=== PATIENT | female | born 1990 | race Caucasian/White ===

== ENCOUNTER 2018-11-27 00:46 | Inpatient (IN) | payer OTHER ==
[2018-11-27] MEDS ORDERED: Lactated Ringers 1,000 ML IV ONE (03:50)
[2018-11-27] MEDS ORDERED: ePHEDrine 50 MG/ML SDV ONE ×2 (05:24→13:19)
[2018-11-27] MEDS ORDERED: Sodium Chloride 0.9% 10 ML Syringe FLUSH PRN ×2 (05:27→06:05)
[2018-11-27] MEDS ORDERED: diphenhydrAMINE 50 MG/ML SDV IVPUSH PRN ×2 (05:27)
[2018-11-27] MEDS ORDERED: Naloxone 0.4 MG/ML SDV IVPUSH PRN (05:27)
[2018-11-27] MEDS ORDERED: Ropivacaine 200 MG in Premix Bag 1 BAG EPIDUR SCH (05:30)
[2018-11-27] MEDS ORDERED: Ropivacaine 100 ML ONE (05:33)
[2018-11-27] MEDS: ePHEDrine 50 MG/ML SDV IVPUSH PRN ×2 (05:57→10:00)
[2018-11-27] MEDS ORDERED: Acetaminophen 325 MG Tab PO PRN (06:05)
--- NOTE | 2018-11-27 06:31 | PCM.LDHP ---
L&D History of Present Illness - General Date of Service: 11/27/18 (PROM) Admit Problem/Dx: Patient Status Order with Admit Dx/Problem 11/27/18 06:07 Patient Status [ADT] Routine Admission Diagnosis/Problem Admission Diagnosis/Problem Source of Information: Patient History Limitations: Reports: No Limitations - History of Present Illness Introduction:: This 28 year old presented for premature rupture of membranes at home last night at 1213. Fluid was clear.Contractions are 3-5 minutes apart and much stronger cervix hasn't changed from clinic last week. 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: : 3 Para: 0 LMP (Approximate): (YFN 11/29/18) Other OB/BYN History: Psychiatric History: Reports: ADHD Immunologic History: Reports: None - Past Surgical History Oncologic Surgical History: Reports: None Social & Family History - Family History Family Medical History: Noncontributory - Tobacco Use Smoking Status *Q: Never Smoker Second Hand Smoke Exposure: No - Caffeine Use Caffeine Use: Reports: None - Recreational Drug Use Recreational Drug Use: No H&P Review of Systems - Review of Systems: Review Of Systems: See Below General: Reports: No Symptoms HEENT: Reports: No Symptoms Pulmonary: Reports: No Symptoms Cardiovascular: Reports: No Symptoms Gastrointestinal: Reports: No Symptoms Genitourinary: Reports: No Symptoms Musculoskeletal: Reports: No Symptoms Skin: Reports: No Symptoms Psychiatric: Reports: No Symptoms Neurological: Reports: No Symptoms Hematologic/Lymphatic: Reports: No Symptoms Immunologic: Reports: No Symptoms L&D Exam - Exam Exam: See Below - Vital Signs Vital Signs: Last Vital Signs Temp 95.5 F 11/27/18 05:38 Pulse 92 11/27/18 06:05 Resp 16 11/27/18 06:05 BP 121/52 L 11/27/18 06:05 Pulse Ox 98 11/27/18 06:05 Weight: 227 lb - OB Specific Contraction Duration (sec): 20-30 Contraction Frequency (min): 5-12 Contraction Intensity: Irritability Movement: Active Heart Tones: Present Heart Rate (FHR) Variability: Moderate (6-25 bmp) Presentation: Vertex Estimated Weight: 8 pounds - Estrella Score Estrella Score Cervix Position: Midposition Estrella Score Consistency: Soft Estrella Score Effacement: 51-70% Estrella Score Dilation: 1-2 cm Estrella Score Infant's Station: -1 ,0 Estrella Score Total: 8 - Exam General: Alert, Oriented HEENT: PERRLA, Conjunctiva Clear, EACs Clear, EOMI, Hearing Intact, Mucosa Moist & [place], Nares Patent, Normal Nasal Septum, Posterior Pharynx Clear, Pupils Equal, Pupils Reactive, TMs Clear Neck: Supple, Trachea Midline Lungs: Clear to Auscultation, Normal Respiratory Effort Cardiovascular: Regular Rate, Regular Rhythm GI/Abdominal Exam: Normal Bowel Sounds, Soft, Non-Tender, No Distention, No Abnormal Bruit, No Mass Rectal Exam: Normal Exam Genitourinary: Normal external exam, Normal bimanual exam, Normal speculum exam , Enlarged uterus Back Exam: Normal Inspection, Full Range of Motion Extremities: Normal Inspection, No Pedal Edema, Normal Capillary Refill Skin: Warm, Dry, Intact Neurological: Cranial Nerves Intact, Reflexes Equal Bilateral Psychiatric: Alert, Normal Affect, Normal Mood - Patient Data Lab Results Last 24 hrs: Laboratory Results - last 24 hr 11/27/18 11/27/18 11/27/18 Range/Units 00:58 01:25 02:48 WBC (4.5-11.0) K/uL RBC (3.30-5.50) M/uL Hgb (12.0-15.0) g/dL Hct (36.0-48.0) % MCV (80-98) fL MCH (27-31) pg MCHC (32-36) % Plt Count (150-400) K/uL Neut % (Auto) (36-66) % Lymph % (Auto) (24-44) % [place] % (Auto) (2-6) % Eos % (Auto) (2-4) % Baso % (Auto) (0-1) % Urine Color Red A (YELLOW) Urine Appearance Cloudy A (CLEAR) Urine pH 7.0 (5.0-8.0) Ur Specific [place] 1.020 (1.008-1.030) Urine Protein 30 H (NEGATIVE) mg/dL Urine Glucose (UA) Normal (NEGATIVE) mg/dL Urine Ketones 15 H (NEGATIVE) mg/dL Urine Occult Blood Large (NEGATIVE) Urine Nitrite Negative (NEGATIVE) Urine Bilirubin Negative (NEGATIVE) Urine Urobilinogen Normal (0.2-1.0) EU/dL Ur Leukocyte Esterase Negative (NEGATIVE) Urine RBC >100 H (0-5) Urine WBC 0-5 (0-5) Ur Epithelial Cells Few Amorphous Sediment Not seen Urine Bacteria Moderate Urine Mucus Not seen Membrane Rupture Positive H (NEGATIVE) Urine Opiates Screen Negative (NEGATIVE) Ur Oxycodone Screen Negative (NEGATIVE) Urine Methadone Screen Negative (NEGATIVE) Ur Propoxyphene Screen Negative (NEGATIVE) Ur Barbiturates Screen Negative (NEGATIVE) Ur Tricyclics Screen Negative (NEGATIVE) Ur Phencyclidine Scrn Negative (NEGATIVE) Ur Amphetamine Screen Negative (NEGATIVE) U Methamphetamines Scrn Negative (NEGATIVE) Urine MDMA Screen Negative (NEGATIVE) U Benzodiazepines Scrn Negative (NEGATIVE) U Cocaine Metab Screen Negative (NEGATIVE) U Marijuana (THC) Screen Negative (NEGATIVE) 11/27/18 Range/Units 04:53 WBC 8.8 (4.5-11.0) K/uL RBC 4.00 (3.30-5.50) M/uL Hgb 12.3 (12.0-15.0) g/dL Hct 37.5 (36.0-48.0) % MCV 94 (80-98) fL MCH 31 (27-31) pg MCHC 33 (32-36) % Plt Count 212 (150-400) K/uL Neut % (Auto) 68 H (36-66) % Lymph % (Auto) 25 (24-44) % [place] % (Auto) 7 H (2-6) % Eos % (Auto) 0 L (2-4) % Baso % (Auto) 0 (0-1) % Urine Color (YELLOW) Urine Appearance (CLEAR) Urine pH (5.0-8.0) Ur Specific [place] (1.008-1.030) Urine Protein (NEGATIVE) mg/dL Urine Glucose (UA) (NEGATIVE) mg/dL Urine Ketones (NEGATIVE) mg/dL Urine Occult Blood (NEGATIVE) Urine Nitrite (NEGATIVE) Urine Bilirubin (NEGATIVE) Urine Urobilinogen (0.2-1.0) EU/dL Ur Leukocyte Esterase (NEGATIVE) Urine RBC (0-5) Urine WBC (0-5) Ur Epithelial Cells Amorphous Sediment Urine Bacteria Urine Mucus Membrane Rupture (NEGATIVE) Urine Opiates Screen (NEGATIVE) Ur Oxycodone Screen (NEGATIVE) Urine Methadone Screen (NEGATIVE) Ur Propoxyphene Screen (NEGATIVE) Ur Barbiturates Screen (NEGATIVE) Ur Tricyclics Screen (NEGATIVE) Ur Phencyclidine Scrn (NEGATIVE) Ur Amphetamine Screen (NEGATIVE) U Methamphetamines Scrn (NEGATIVE) Urine MDMA Screen (NEGATIVE) U Benzodiazepines Scrn (NEGATIVE) U Cocaine Metab Screen (NEGATIVE) U Marijuana (THC) Screen (NEGATIVE) Result Diagrams: 11/27/18 04:53 - Problem List (1) SNOMED Code(s): 24550248 ICD Code: Z34.90 - ENCNTR FOR SUPRVSN OF NORMAL , UNSP, UNSP TRIMESTER Status: Acute Current Visit: Yes Qualifiers: Weeks of gestation: 40 weeks Qualified Code(s): Z3A.40 - 40 weeks gestation of (2) PROM (premature rupture of membranes) SNOMED Code(s): 36063248 ICD Code: O42.90 - ISAMAR ROM, 7TH0 BETW RUPT & ONST LABR, UNSP WEEKS OF GEST Status: Acute Current Visit: Yes Qualifiers: PROM gestational age: full term Problem List Initiated/Reviewed/Updated: Yes Orders Last 24hrs: Active Orders 24 hr Category Date Time Status Patient Status [ADT] Routine ADT 11/27/18 06:07 Ordered Antiembolic Devices [RC] .Routine Care 11/27/18 06:10 Ordered Communication Order [RC] ASDIRECTED Care 11/27/18 06:07 Ordered Communication Order [RC] ROUTINE Care 11/27/18 05:27 Active Communication Order [RC] ROUTINE Care 11/27/18 05:27 Active Communication Order [RC] ROUTINE Care 11/27/18 05:27 Active Heart Tones [RC] PER UNIT ROUTINE Care 11/27/18 06:07 Ordered Notify Provider Vital Signs [RC] PRN Care 11/27/18 06:05 Ordered Notify Provider [RC] PRN Care 11/27/18 06:07 Ordered OB Check [OM.PC] Click to Edit Care 11/27/18 00:58 Ordered Oxygen Therapy [RC] ASDIRECTED Care 11/27/18 05:27 Active PCEA Epidural [RC] ASDIRECTED Care 11/27/18 03:51 Active PCEA Epidural [RC] ASDIRECTED Care 11/27/18 05:27 Inactive PCEA Epidural [RC] ASDIRECTED Care 11/27/18 05:28 Inactive Peripheral IV Care [RC] . DIRECTED Care 11/27/18 05:28 Active Pulse Oximetry [RC] ASDIRECTED Care 11/27/18 05:27 Active Up ad Alanna [RC] ASDIRECTED Care 11/27/18 06:05 Ordered VTE/DVT Education [RC] Click to Edit Care 11/27/18 06:10 Ordered Vital Signs [RC] PER UNIT ROUTINE Care 11/27/18 05:27 Active Vital Signs [RC] PER UNIT ROUTINE Care 11/27/18 06:07 Ordered Acetaminophen [Tylenol] Med 11/27/18 06:05 Ordered 650 mg PO Q4H PRN Naloxone [Narcan] Med 11/27/18 05:27 Active 0.1 mg IVPUSH ASDIRECTED PRN Ondansetron [Zofran] Med 11/27/18 05:18 Ordered 4 mg IVPUSH Q4H PRN Oxytocin/Normal Saline [Pitocin in NS 20 Units/1,000 ML Med 11/27/18 06:11 Ordered ] 20 unit in 1,000 ml IV ONETIME Oxytocin/Normal Saline [Pitocin in NS 20 Units/1,000 ML Med 11/27/18 06:30 Ordered ] 1,000 ml IV TITRATE Ropivacaine [Naropin 0.2%] 200 mg Med 11/27/18 05:30 Active Premix Bag 1 bag EPIDUR ASDIRECTED Sodium Chloride 0.9% [Saline Flush] Med 11/27/18 05:27 Active 10 ml FLUSH ASDIRECTED PRN Sodium Chloride 0.9% [Saline Flush] Med 11/27/18 06:05 Ordered 10 ml FLUSH ASDIRECTED PRN diphenhydrAMINE [Benadryl] Med 11/27/18 05:27 Active 25 mg IVPUSH Q6H PRN diphenhydrAMINE [Benadryl] Med 11/27/18 05:27 Active 50 mg IVPUSH Q6H PRN ePHEDrine [ePHEDrine sulfate] Med 11/27/18 05:27 Active 10 mg IVPUSH ASDIRECTED PRN DVT/VTE Prophylaxis Reflex [OM.PC] Routine Oth 11/27/18 06:05 Ordered Epidural Catheter Management [OM.PC] Routine Oth 11/27/18 05:27 Ordered Peripheral IV Insertion Pediatric [OM.PC] Routine Oth 11/27/18 05:27 Ordered Saline Lock Insert [OM.PC] Routine Oth 11/27/18 06:07 Ordered Resuscitation Status Routine Resus Stat 11/27/18 06:05 Ordered Medication Orders Acetaminophen (Tylenol) 650 mg PO Q4H PRN PRN Reason: Pain (Mild 1-3) and fever Diphenhydramine HCl (Benadryl) 25 mg IVPUSH Q6H PRN PRN Reason: Itching Diphenhydramine HCl (Benadryl) 50 mg IVPUSH Q6H PRN PRN Reason: Itching Ephedrine Sulfate (Ephedrine Sulfate) 10 mg IVPUSH ASDIRECTED PRN PRN Reason: Hypotension Last Admin: 11/27/18 05:57 Dose: 15 mg Ropivacaine 200 mg/ Premix 100 mls @ 0 mls/hr EPIDUR ASDIRECTED DARINEL Oxytocin/Sodium Chloride (Pitocin In Ns 20 Units/1,000 Ml) 20 unit in 1,000 mls @ 999 mls/hr IV ONETIME ONE; Protocol Stop: 11/27/18 07:11 Oxytocin/Sodium Chloride (Pitocin In Ns 20 Units/1,000 Ml) 1,000 mls @ 6 mls/ hr IV TITRATE DARINEL; Protocol Naloxone HCl (Narcan) 0.1 mg IVPUSH ASDIRECTED PRN PRN Reason: Oversedation Ondansetron HCl (Zofran) 4 mg IVPUSH Q4H PRN PRN Reason: Nausea/Vomiting Sodium Chloride (Saline Flush) 10 ml FLUSH ASDIRECTED PRN PRN Reason: Keep Vein Open Sodium Chloride (Saline Flush) 10 ml FLUSH ASDIRECTED PRN PRN Reason: Keep Vein Open Assessment/Plan Comment:: 8/25/19 28 year old 39 5/7 weeks with PROM PLAN: epidural for comfort Pitocin augmentation Had a LEEP before becoming and there is concern about her ability to dilate completely. Labor of active labor and cervical change.
[2018-11-27] MEDS: Ondansetron 4 MG/2 ML SDV IVPUSH PRN ×2 (06:47→11:54)
--- NOTE | 2018-11-27 10:53 | PCM.PNLD ---
Labor Progress Note - VS & Meds Vital Signs: Last Vital Signs Temp 96.3 F 11/27/18 07:00 Pulse 121 H 11/27/18 10:00 Resp 20 11/27/18 10:00 BP 101/60 11/27/18 10:00 Pulse Ox 99 11/27/18 10:00 Active Medications: Current Medications Acetaminophen (Tylenol) 650 mg PO Q4H PRN PRN Reason: Pain (Mild 1-3) and fever Diphenhydramine HCl (Benadryl) 25 mg IVPUSH Q6H PRN PRN Reason: Itching Diphenhydramine HCl (Benadryl) 50 mg IVPUSH Q6H PRN PRN Reason: Itching Ephedrine Sulfate (Ephedrine Sulfate) 10 mg IVPUSH ASDIRECTED PRN PRN Reason: Hypotension Last Admin: 11/27/18 10:00 Dose: 10 mg Ropivacaine 200 mg/ Premix 100 mls @ 0 mls/hr EPIDUR ASDIRECTED DARINEL Oxytocin/Sodium Chloride (Pitocin In Ns 20 Units/1,000 Ml) 20 unit in 1,000 mls @ 6 mls/hr IV TITRATE DARINEL; Protocol Last Titration: 11/27/18 09:30 Dose: 21 mls/hr Naloxone HCl (Narcan) 0.1 mg IVPUSH ASDIRECTED PRN PRN Reason: Oversedation Ondansetron HCl (Zofran) 4 mg IVPUSH Q4H PRN PRN Reason: Nausea/Vomiting Last Admin: 11/27/18 06:47 Dose: 4 mg Sodium Chloride (Saline Flush) 10 ml FLUSH ASDIRECTED PRN PRN Reason: Keep Vein Open Sodium Chloride (Saline Flush) 10 ml FLUSH ASDIRECTED PRN PRN Reason: Keep Vein Open Discontinued Medications Ephedrine Sulfate (Ephedrine Sulfate) Confirm Administered Dose 50 mg .ROUTE .STK-MED ONE Stop: 11/27/18 05:25 Last Admin: 11/27/18 06:00 Dose: Not Given Lactated Ringer's (Ringers, Lactated) 1,000 mls @ 999 mls/hr IV BOLUS ONE; Protocol Stop: 11/27/18 04:50 Last Admin: 11/27/18 04:00 Dose: 999 mls/hr Ropivacaine (Naropin 0.2%) Confirm Administered Dose 100 mls @ as directed .ROUTE .STK-MED ONE Stop: 11/27/18 05:34 Oxytocin/Sodium Chloride (Pitocin In Ns 20 Units/1,000 Ml) 20 unit in 1,000 mls @ 999 mls/hr IV ONETIME ONE; Protocol Stop: 11/27/18 07:11 - Uterine Contractions Uterine Monitoring Mode: External [place] Contraction Frequency (min): 2.5-3 Contraction Duration (sec): 60-110 Contraction Intensity: Mild Uterine Resting Tone: Soft - Monitoring Monitor Mode: None Heart Rate (FHR) Baseline: 140 Heart Rate (FHR) Variability: Moderate (6-25 bmp) Accelerations: Present, 15x15 Decelerations: None Strip Review: Category I - Vaginal Exam Dilation (cm): 3 Effacement (Percent): 90 Station: -1 Cervical Position: Anterior Sterile Vaginal Exam Performed By: Sandra Neal Vaginal Exam Comment: thinner then this morning, bloody show present - Labor Progress (Free Text) Labor Progress: Pitocin has been infusing for 4 hour now. Some effacement and bloody show, no real change in dilatation. Cat one strip epidural working well Mother doesn't want a vaginal delivery. She is so worried about pain after delivery. Sex hurts since she had a leep and she doesn't want any more problems. She is requesting a c section. I reviewed risks and benefits with her. She is willing to proceed. The Pitocin was turned off. OR crew notified. The OR crew has just started a long case and it will be several hours before we can or to the OR. Will reassess her cervix before going to surgery and maybe she will change her mind.
[2018-11-27] MEDS ORDERED: Lactated Ringers 1,000 ML IV SCH (12:00)
[2018-11-27] MEDS ORDERED: Oxytocin 10 Units/1 ML SDV ONE ×2 (13:19→14:59)
[2018-11-27] MEDS ORDERED: cefOXitin 2 GM Vial ONE (13:19)
[2018-11-27] MEDS ORDERED: Sodium Chloride 0.9% 10 ML ONE (13:19)
[2018-11-27] MEDS ORDERED: Bupivacaine 0.5% 30 ML SDV ONE (13:23)
[2018-11-27] MEDS ORDERED: cefOXitin 1 GM Vial ONE (15:00)
[2018-11-27] MEDS ORDERED: Morphine PF 10 MG/10 ML SDV ONE (15:28)
[2018-11-27] MEDS: Dextrose 5%-Lactated Ringers 1,000 ML IV SCH ×2 (16:30→23:12)
--- NOTE | 2018-11-27 17:40 | ANES ---
DATE OF SERVICE: 11/27/2018 INDICATION: Mrs. Arvizu is a 28-year-old female patient, who is in active labor and would like to be on labor epidural. The risks and benefits of the procedure were explained to the patient. She wished to proceed with labor epidural. She was placed in a sitting position. Her back was prepped x3 with Betadine and 1% lidocaine skin local was used. The epidural was placed at L3-4 using a 17-gauge Tuohy needle in loss of resistance technique. The epidural had very good feel throughout, and the epidural space was easily identified. There was negative CSF, negative blood, and negative paresthesias noted. Therefore, catheter was threaded to 15 cm at the skin. The catheter had negative CSF, negative blood, negative paresthesias noted. Therefore, a test dose of 1.5% lidocaine with epinephrine was given and this test dose was negative. The catheter was then secured with Tegaderm and tape, and the patient was placed in a supine position. A 0.2% ropivacaine bolus of 12 mL was given. She had very good relief from the initial bolus as well as a little bit of a bout of hypotension. We did give her some ephedrine and this resolved. A 0.2% ropivacaine drip was started at 12 mL/h. She tolerated the procedure very nicely. Her vital signs remained stable throughout the procedure and nurse was with me for the entire procedure. There were no anesthesia complications noted. We will continue to monitor her throughout her Labor and Delivery stay. Odilon Otto CRNA /[id number]
[2018-11-27] MEDS ORDERED: Meperidine PF 100 MG/ML Syringe IM ONE (17:47)
[2018-11-27] MEDS ORDERED: Ondansetron 4 MG/2 ML SDV IVPUSH PRN (17:48)
[2018-11-27] MEDS: cefOXitin 2 GM in Sodium Chloride 0.9% 50 ML IV SCH ×2 (18:49→23:12)
[2018-11-27] MEDS ORDERED: cefOXitin 2 GM in Sodium Chloride 0.9% 50 ML IV SCH (21:00)
[2018-11-28] MEDS: cefOXitin 2 GM in Sodium Chloride 0.9% 50 ML IV SCH (05:14)
[2018-11-28] MEDS: Dextrose 5%-Lactated Ringers 1,000 ML IV SCH (05:15)
[2018-11-28] MEDS ORDERED: Acetaminophen/oxyCODONE 325-5 MG Tab PO PRN (07:26)
[2018-11-28] MEDS ORDERED: Morphine PF 10 MG/10 ML SDV ONE (07:28)
[2018-11-28] MEDS ORDERED: Sodium Chloride 0.9% 10 ML ONE (07:29)
[2018-11-28] MEDS ORDERED: Morphine PF 10 MG/10 ML SDV EPIDUR PRN (08:07)
--- NOTE | 2018-11-28 09:57 | PN ---
DATE OF SERVICE: 11/28/2018 SUBJECTIVE: Katrina is postoperative day #1 following a . She states her pain is controlled. She has had one near syncope episode when getting up to sit in the chair. Epidural remains in. Vital signs stable. Last blood pressure was 94/59. Oral intake is n.p.o. with sips only 300. Urine output is 4425. Has no questions or concerns. REVIEW OF SYSTEMS: Remainder of review of systems negative for any pertinent positives and negatives. OBJECTIVE: GENERAL: aKtrina Arvizu is a pleasant 28-year-old female. VITAL SIGNS: TPR is 98.2, 78, 16, blood pressure 94/59. HEENT: Negative. HEART: Regular rate and rhythm. LUNGS: Clear. ABDOMEN: Dressings dry and intact. Adam catheter in place. EXTREMITIES: Without peripheral edema. ASSESSMENT: section for term with failure to progress secondary to transverse lie. Date: 11/27/2018. Surgeon: Trevon Azul MD. PLAN: 1. Discontinue Adam catheter. 2. Saline lock IV. 3. Ibuprofen 600 mg q.6 hours scheduled, take with food. 4. Percocet 5/325 mg 1 to 2 every 4 hours p.r.n. pain. 5. Colace 100 mg p.o. b.i.d. 6. Full liquid diet and advanced to regular diet as tolerated. 7. May shower. 8. We will evaluate p.r.n. or in a.m. Eulalia Hart PA-C /[id number]
[2018-11-28] MEDS: Docusate Sodium 100 MG Cap PO SCH ×2 (10:35→21:21)
[2018-11-28] MEDS: Ibuprofen 600 MG Tab PO SCH ×3 (11:18→21:20)
[2018-11-29] MEDS: Ibuprofen 600 MG Tab PO SCH ×3 (01:50→15:11)
[2018-11-29] MEDS: Docusate Sodium 100 MG Cap PO SCH (09:59)
--- NOTE | 2018-11-29 11:12 | PN ---
DATE OF SERVICE: 11/29/2018 SUBJECTIVE: Katrina's pain is controlled with the use of ibuprofen. She has been afebrile, urinating without difficulty. She has no questions or concerns in relationship to her section. OBJECTIVE: GENERAL: Katrina Arvizu is a pleasant 28-year-old female. VITAL SIGNS: TPR is 98.2, 74, 16, and blood pressure is 100/51. HEENT: Negative. NECK: Supple. HEART: Regular rate and rhythm. LUNGS: Clear. ABDOMEN: Aquacel dressings on. EXTREMITIES: Without peripheral edema. ASSESSMENT: section for term with failure to progress secondary to transverse lie. Date 11/27/2018. Surgeon, Trevon Azul MD. PLAN: 1. Continue same treatment plan in regard to . 2. We will evaluate p.r.n. or in a.m. 3. Plan discharge in a.m. Eulalia Hart PA-C /[id number]
--- NOTE | 2018-11-30 13:04 | OR ---
DATE OF PROCEDURE: 11/27/2018 PREOPERATIVE DIAGNOSIS: Term with failure to progress. POSTOPERATIVE DIAGNOSIS: Term with failure to progress. OPERATIVE PROCEDURE: section (30672). ANESTHESIA: Epidural. DERMATOLOGIST AND DERMATOPATHOLOGIST: Andreia Neal CNM. INDICATION FOR PROCEDURE: This is a 28-year-old presenting with term in labor, who at this point has failure to progress. The baby and mother are both clinically otherwise stable. The plan is to proceed with a section. She has an epidural catheter in place, which will be used for the anesthetic. Potential risks including bleeding, infection, injury to the baby and/or mother were all reviewed, and the patient wishes to proceed. DETAILS OF PROCEDURE: The patient was taken to the operating room. After initial epidural anesthesia was injected, the patient was placed in the supine position with a roll underneath the right hip and Adam catheter inserted. The abdomen was prepped and draped. A transverse Pfannenstiel-type incision was made and carried down through the skin and subcutaneous tissue. Through the external oblique aponeurosis, subaponeurotic flaps were raised superiorly and inferiorly, and the midline fascia and peritoneum were divided. Peritoneal reflection of bladder on the uterus was divided and a transverse lower uterine incision was made. Viable female was then delivered. She was noted to have malpresentation in terms of what appeared to be somewhat of a transverse lie with the face facing more or less superiorly. This was relocated and baby delivered without difficulty. Cord was cut and clamped, and routine care was given off the field per Sadnra Neal. The scores at one and five minutes were 8 and 9 respectively. The patient was given IV intrauterine oxytocin and IV cefoxitin. The placenta and membranes were then delivered without difficulty. The uterus was then closed with 2 layers of 2-0 Vicryl stitch as was the peritoneal reflection of the bladder on the uterus, and the midline musculature and perineum were approximated with #2 Vicryl stitch as was the anterior rectus sheath. The subcutaneous tissue was irrigated with cefoxitin-containing saline solution. At that point, subcutaneous tissue was approximated with 2 layers of 3-0 and 4-0 Vicryl stitch deep and 4-0 Vicryl subcuticular stitch. Dressing was applied. The patient was taken to the recovery room in a satisfactory condition. Sandra Neal played an essential role in assisting in this case, helping to position the patient, retract structures as needed, as well as suturing and cutting sutures when indicated. Her presence improved patient safety and decreased the operative time. Trevon Azul MD /[id number]
--- NOTE | 2018-12-01 05:58 | DISCH ---
ADMISSION DIAGNOSES: 1. Term . 2. Premature rupture of membranes. 3. Failure to progress. DISCHARGE DIAGNOSES: section for term with failure to progress secondary to transverse lie. DATE OF SURGERY: 11/27/2018. SURGEON: Trevon Azul MD. HISTORY: Katrina Arvizu is a 28-year-old female, who had premature rupture of membranes with failure to progress secondary to transverse lie. After preoperative evaluation and discussion of possible risks and possible complications, she wished to proceed with surgical procedure. HOSPITAL COURSE: Katrina had a on 11/27/2018. She had no operative complications. On postoperative day #1, her epidural was discontinued as well as her Adam catheter. IV was saline locked. She was changed to oral pain medications Percocet and ibuprofen. She was started on a stool softener and her diet, full liquid, was advanced to regular diet when she tolerated it. On postoperative day #2, she was ready to be discharged per her request. Vital signs were stable. Her activity was good and she received postop instructions. PHYSICAL EXAMINATION: GENERAL: Katrina Arvizu is a pleasant 28-year-old female, height is 5 feet 4.96 inches, weight is 226 pounds. TPR 97.3, 75, 16, blood pressure 102/55. HEENT: Negative. NECK: Supple. HEART: Regular rate and rhythm. LUNGS: Clear. ABDOMEN: At time of examination, the Aquacel dressing was on, and per nursing staff it was removed and Steri-Strips were replaced prior to discharge. EXTREMITIES: Revealed trace peripheral edema. DISPOSITION: Discharged to home. CONDITION: Stable and improving. FOLLOWUP: Followup appointment with Eulalia Hart PA-C, 12/07/2018 at 11 a.m. HOME MEDICATION: 1. Ibuprofen 600 mg every 6 hours p.r.n. pain, #100. 2. Colace 100 mg p.o. b.i.d., #60. 3. vitamins 1 daily. 4. Tylenol 650 mg every 6 hours p.r.n. pain. DIET: Regular diet as tolerated. Drink 8 to 10 glasses of water a day. ACTIVITY: As tolerated. No lifting more than baby and car seat for 6 weeks. Driving, do not drive for 1 week. Shower/bathing, may shower. No tub bathing or swimming. Wound incision, keep operative site clean and dry. DISCHARGE INSTRUCTIONS: Notify provider if any fever, increased pain, swelling, redness, drainage, nausea, or vomiting.
== END 2018-11-29 15:11 | disposition home or self-care (01) | DRG 788 ==
LOC: JP.OBCHECK 00:46 → JP.OB 01:43 → OBSVTOIN 15:07 → JP.MS 15:39
PROVIDERS: ADMIT Nurse Practitioner Family; ATTEND Surgery
PROC: 00HU33Z Insertion of Infusion Device into Spinal Canal, Percutaneous Approach (ICD-10-PCS; principal; 2018-11-27)
PROC: 10D00Z1 Extraction of Products of Conception, Low, Open Approach (ICD-10-PCS; 2018-11-27)
PROC: 3E0R3BZ Introduction of Anesthetic Agent into Spinal Canal, Percutaneous Approach (ICD-10-PCS; 2018-11-27)
PROC: 4A1HXCZ Monitoring of Products of Conception, Cardiac Rate, External Approach (ICD-10-PCS; 2018-11-27)
DX: O32.3XX0 Maternal care for face, brow and chin presentation, not applicable or unspecified (principal); O42.02 Full-term premature rupture of membranes, onset of labor within 24 hours of rupture; O62.1 Secondary uterine inertia; O48.0 Post-term pregnancy; Z37.0 Single live birth; Z3A.40 40 weeks gestation of pregnancy
CPT/HCPCS: 36415; 51702; 80305-QW; 81001; 84112; 85025; 86850; 86900; 86901; 88307; 94762; 99211; A9270-GY; J0694; J2175; J2270; J2405; J2590; J2795; J3490; J7042; J7050; J7120